=== PATIENT | male | born 1990 | race Caucasian/White ===

== ENCOUNTER 2020-02-10 11:09 | Emergency (ER) | payer OTHER ==
[2020-02-10] MEDS ORDERED: HYDROmorphone 1 MG/ML CARPUJECT IM STA (11:41)
--- NOTE | 2020-02-10 11:54 | ED Physician Documentation ---
History of Present Illness - Stated complaint Stated Complaint: LT HIP/BACK PX - Chief complaint Chief Complaint: Neuro - History obtained from History obtained from: Patient - Additonal information Additional information: 29-year-old male presents the emergency department with acute onset left low back pain that radiates to his foot. He states that in the past he has had twinges of pain in his low back that he associates with sitting too long when chaz. However when he woke up this morning he reports that the pain was so severe he could not get out of bed for about half an hour and his had to assist him getting dressed. He denies any recent falls or trauma. No saddle anesthesia bowel or bladder incontinence. No history of cancer or IV drug drug use. Patient took 500 mg of Tylenol at home and at this time has marked improvement in his back pain able to ambulate with out assistance. Review of Systems Constitutional: reports: Reviewed and negative Ears: reports: Reviewed and negative Nose: reports: Reviewed and negative Throat: reports: Reviewed and negative Cardiac: reports: Reviewed and negative Respiratory: reports: Reviewed and negative GI: reports: Reviewed and negative : reports: Reviewed and negative Skin: reports: Reviewed and negative Musculoskeletal: reports: Back pain Neurologic: reports: Reviewed and negative. denies: Focal weakness, Numbness Psychiatric: reports: Reviewed and negative PD PAST MEDICAL HISTORY - Present Medications Home Medications: Ambulatory Orders Medication Instructions Recorded Confirmed Cyclobenzaprine [Flexeril] 10 mg PO TID PRN #20 tablet 02/10/20 Ibuprofen [Motrin] 600 mg PO Q6H PRN #30 tab 02/10/20 - Allergies Allergies/Adverse Reactions: Allergies Allergy/AdvReac Type Severity Reaction Status Date / Time No Known Drug Allergies Allergy Verified 02/10/20 11:19 PD ED PE EXPANDED - General General: Alert, No acute distress, Well developed/nourished - Cardiac Cardiac: Regular Rate, Regular Rhythm, Radial strong equal, Pedal strong equal, Cap refill < 2 sec - Respiratory Respiratory: Clear to ausultation radha. No: Distress, Labored - Back Back: Normal ROM, Soft tissue tenderness (Left lower paraspinous tenderness to palpation. Positive tenderness at the left SI joint. Positive straight leg exam left leg. Motor strength 5 of 5 bilaterally. Patient able to freely walk on heels and toes.), Straight leg raise + L. No: Vertebral tenderness, CVA TTP right, CVA TTP left - Extremities Extremities: Normal. No: Deformity, Tenderness, Pedal edema bilateral - GCS Eye Opening: Spontaneous Motor: Obeys Commands Verbal: Oriented Total: 15 - Psych Psych: Normal Results - Vitals Vitals: Vital Signs - 24 hr 02/10/20 11:16 Temperature 36.8 C Heart Rate 68 Respiratory 17 Rate Blood Pressure 140/81 H O2 Saturation 100 Oxygen O2 Source Room air PD MEDICAL DECISION MAKING - ED course Complexity details: re-evaluated patient, considered differential ED course: 29-year-old male presents the emergency department with acute onset left low back pain that occurred this morning upon waking. No history of similar. He has no clinical red flags on exam. 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 He did have moderate pain relief after taking Tylenol at home and he was given 1 mg of Dilaudid IM here in the emergency department. Is a very reassuring exam, ambulating without assistance. At this time I will discharge him with prescription for ibuprofen as well as a muscle relaxer. I have referred him to follow-up with [facility] in the long-term. We discussed gentle stretching, sciatica exercises and emergent return precautions Departure - Departure Disposition: 01 Home, Self Care Clinical Impression: Sciatica Qualifiers: Laterality: left Qualified Code(s): M54.32 - Sciatica, left side Condition: Stable Record reviewed to determine appropriate education?: Yes Instructions: ED Sciatica Follow-Up: [facility] [Provider Group] Prescriptions: Cyclobenzaprine [Flexeril] 10 mg PO TID PRN #20 tablet PRN Reason: Spasms Ibuprofen [Motrin] 600 mg PO Q6H PRN #30 tab PRN Reason: Pain Comments: Beny your back pain is most likely a result of sciatica which is inflammation of the large nerve that runs from your low back down your leg. I would like you to take the ibuprofen with food 2-3 times a day and use the muscle relaxer sparingly. Please be cautious with it it may make you sleepy and unsafe to drive vehicles. Please schedule an appointment with a primary care provider at [facility] to be reevaluated in the next few weeks. If at any point you lose control of your bowel or bladder function, have fevers or lose sensation in your groin area please return immediately to the ER.
[2020-02-10 12:22] VITALS: BP 133/87
== END 2020-02-10 12:22 | disposition home or self-care (01) ==
LOC: ED 11:09
DX: M54.42 Lumbago with sciatica, left side (principal)
CPT/HCPCS: 96372; 99283; 99284; J1170

== ENCOUNTER 2021-03-27 08:00 | Outpatient (CLI) | payer OTHER ==
[2021-03-27 21:02] LABS: CHLAMYDIA TRACHOMATIS DNA NEGATIVE (NEGATIVE); NEISSERIA GONORRHOEAE DNA NEGATIVE (NEGATIVE)
[2021-03-28 11:38] LABS: HEPATITIS C ANTIBODY NON-REACTIVE (NON-REACTIVE)
[2021-03-28 14:02] LABS: HIV AG/AB 4TH GEN NON-REACTIVE (NON-REACTIVE)
== END 2021-03-27 23:59 ==
LOC: LAB.N 08:00
PROVIDERS: ATTEND Physician Assistant Medical
DX: R39.9 Unspecified symptoms and signs involving the genitourinary system (principal)
CPT/HCPCS: 86592; 86803; 87086; 87389; 87491; 87591; 87661

== ENCOUNTER 2022-05-29 08:08 | Emergency (ER) | payer OTHER, MEDICAID ==
[2022-05-29 08:18] VITALS: BP 128/78
--- NOTE | 2022-05-29 08:30 | ED Physician Documentation ---
PD HPI OPHTHO - Stated complaint Stated Complaint: L EYE INJ - Chief complaint Chief Complaint: Heent - History obtained from History obtained from: Patient - History of Present Illness Timing - onset: How many days ago (5) Timing - duration: Days (he was struck by hairband that struck his left eye. [place] watery and momentarily blurred. Was then just irritated 1-2 days, with de velopment of redness and some matting the past couple of days. much more painful today. Seen by Ophthalmology yesterday and rx Tobradex, but pharmacy did not have it then) Timing - details: Abrupt onset, Still present Location: Left Review of Systems Constitutional: denies: Fever Eyes: reports: Photophobia, Discharge (today), Irritation. denies: Loss of vision PD PAST MEDICAL HISTORY - Past Medical History Past Medical History: Yes Cardiovascular: None Respiratory: None Neuro: None Endocrine/Autoimmune: None GI: None : None HEENT: None Psych: None Musculoskeletal: Chronic back pain Derm: None - Past Surgical History Past Surgical History: No - Present Medications Home Medications: Ambulatory Orders Medication Instructions Recorded Confirmed Proparacaine 0.5% Ophth Drops 1 drops OPTH Q1H PRN #15 ml 05/29/22 [Alcaine 0.5% Ophth Drops] Tobramycin/Dexamethasone [Tobradex 1 applic BID 05/29/22 05/29/22 Eye Ointment] - Allergies Allergies/Adverse Reactions: Allergies Allergy/AdvReac Type Severity Reaction Status Date / Time No Known Drug Allergies Allergy Verified 05/29/22 08:13 - Social History Does the pt smoke?: No Smoking Status: Never smoker - Immunizations Immunizations are current?: Yes PD ED PE NORMAL - Vitals Vital signs reviewed: Yes - General General: Alert and oriented X 3, Well developed/nourished, Other (appears very uncomfrtable and is squinting with left eye, mostly closed. light is very bothersome. ) - Neck Neck: Supple, no meningeal sign, No adenopathy PD ED PE EXPANDED - Eyes Eyes: PERRL, EOMI, Left eye, Anterior chambers clear. No: Corneal FB, Corneal abrasion, Corneal ulcer, Fluorescein uptake, Hyphema Results - Vitals Vitals: Vital Signs - 24 hr 05/29/22 08:13 Temperature 36.8 C Heart Rate 72 Respiratory 18 Rate Blood Pressure 128/78 O2 Saturation 99 Oxygen O2 Source Room air PD Medical Decision Making - ED course Complexity details: reviewed old records (the external pharmacy review showed that the script was filled yesterday, so presume it is ready to be picked up. for the moment, he did have improvement with proparaciane. Started erythro ointment as wheat we have in stock in ER, somewhat for comfort of ointment. Does not have abrasion/ulceration.), d/w patient Drug Therapy Requiring Monitoring for Toxicity: proparacaine eye drops put in left eye and gave quite a bit of relief of his eye pain. minimal light sensitivty. the patient was scripted tobradex by Ophthalmolotist yesterday, so patient can pick it up at pharmacy and use it as directed, with folowwing up with the information security specialist. Departure - Departure Disposition: 01 Home, Self Care Clinical Impression: Conjunctivitis, acute Qualifiers: Acute conjunctivitis type: unspecified Laterality: left Qualified Code(s): H10.32 - Unspecified acute conjunctivitis, left eye Condition: Stable Record reviewed to determine appropriate education?: Yes Prescriptions: Proparacaine 0.5% Ophth Drops [Alcaine 0.5% Ophth Drops] 1 drops OPTH Q1H PRN #15 ml PRN Reason: Pain 1-4 Comments: The pharmacy records show the prescription written by the information security specialist is filled so I presume ready for pickup. Is a combination of tobramycin and de xamethasone which is a antibiotic and a steroid anti-inflammatory. I would start and use this as directed by the b2b sales consultant. In the short-term we could add the proparacaine numbing eyedrops every hour or so as needed for discomfort. Limit this to no more than 1 or 2 days as we do want to see how well this is improving without the use of it. You can also use anti-inflammatory such as ibuprofen or naproxen 2-3 times daily and add Tylenol if needed for pains. I sent prescription for this up to [facility]. It does look like you have some inflammation of the conjunctive a and presumably an infection which is what they are going to treat it as. Discharge Date/Time: 05/29/22 09:07
[2022-05-29] MEDS ORDERED: ERYTHROMYCIN OPHTH OINT 1 GM TUBE LEFTEYE STA (08:44)
[2022-05-29] MEDS ORDERED: IBUPROFEN 600 MG TABLET PO STA (08:44)
[2022-05-29] MEDS ORDERED: ACETAMINOPHEN 325 MG TABLET PO STA (08:44)
== END 2022-05-29 09:07 | disposition home or self-care (01) ==
LOC: ED 08:08
DX: H10.32 Unspecified acute conjunctivitis, left eye (principal)
CPT/HCPCS: 99282; 99283; A9270; J3490